=== PATIENT | female | born 2000 | race Two or more races ===

== ENCOUNTER 2023-02-07 22:52 | Emergency (ER) | payer OTHER ==
[~2023-02-07] VITALS: Ht 175.3 cm; Wt 59.0 kg
[2023-02-07] MEDS ORDERED: ADERAL (23:35)
[2023-02-08] MEDS ORDERED: KETO10TA2 PO (02:18)
== END 2023-02-08 02:26 ==
LOC: ER 22:52
DX: S93.401A Sprain of unspecified ligament of right ankle, initial encounter (principal); X58.XXXA Exposure to other specified factors, initial encounter; Y93.9 Activity, unspecified; Y92.410 Unspecified street and highway as the place of occurrence of the external cause; Y99.9 Unspecified external cause status